=== PATIENT | female | born 1940 | race Caucasian/White ===

== ENCOUNTER 2016-10-28 04:10 | Inpatient (IN) | payer MEDICARE ==
[~2016-10-28] VITALS: Ht 165.1 cm; Wt 107.0 kg
[2016-10-28 08:42] LABS: HEMOGLOBIN 13.4 gm/dl (12.3-15.3); RED BLOOD COUNT 4.61 M/UL (4.00-5.10)
[2016-10-28 09:03] LABS: WHITE BLOOD COUNT 19.9 K/UL (4.5-11.0)
[2016-10-28] MEDS ORDERED: BENICAR40 MG PO (12:44)
[2016-10-28] MEDS ORDERED: ASPIRIN81 MG PO (12:44)
[2016-10-28] MEDS ORDERED: NEURONTIN 400400 MG PO (12:45)
[2016-10-28] MEDS ORDERED: PRADAXA150 MG PO (12:46)
[2016-10-28] MEDS ORDERED: SOTALOL80 MG PO (12:47)
[2016-10-28] MEDS ORDERED: GLUCOPHAGE1000 MG PO (12:47)
[2016-10-28] MEDS ORDERED: ZANTAC150 MG PO (12:48)
[2016-10-28] MEDS ORDERED: CARDIZEM CD180 MG PO (12:55)
[2016-10-28 15:25] LABS: RED BLOOD COUNT 3.84 M/UL (4.00-5.10)
[2016-10-29 03:11] LABS: HEMOGLOBIN 9.4 gm/dl (12.3-15.3); RED BLOOD COUNT 3.27 M/UL (4.00-5.10); WHITE BLOOD COUNT 21.5 K/UL (4.5-11.0)
== END 2016-10-29 09:50 | disposition expired | DRG 270 ==
LOC: ER1 04:10 → ZEROF 04:42 → CCU 04:42
PROVIDERS: Emergency Medicine; Internal Medicine; Internal Medicine Pulmonary Disease; ADMIT Internal Medicine Interventional Cardiology
PROC: 5A02210 Assistance with Cardiac Output using Balloon Pump, Continuous (ICD-10-PCS; principal; 2016-10-28)
PROC: 02703DZ Dilation of Coronary Artery, One Artery with Intraluminal Device, Percutaneous Approach (ICD-10-PCS; 2016-10-28)
PROC: 5A1223Z Performance of Cardiac Pacing, Continuous (ICD-10-PCS; 2016-10-28)
PROC: 4A023N7 Measurement of Cardiac Sampling and Pressure, Left Heart, Percutaneous Approach (ICD-10-PCS; 2016-10-28)
PROC: B2151ZZ Fluoroscopy of Left Heart using Low Osmolar Contrast (ICD-10-PCS; 2016-10-28)
PROC: B2111ZZ Fluoroscopy of Multiple Coronary Arteries using Low Osmolar Contrast (ICD-10-PCS; 2016-10-28)
PROC: 5A1935Z Respiratory Ventilation, Less than 24 Consecutive Hours (ICD-10-PCS; 2016-10-28)
PROC: 0BH17EZ Insertion of Endotracheal Airway into Trachea, Via Natural or Artificial Opening (ICD-10-PCS; 2016-10-28)
PROC: 05HM33Z Insertion of Infusion Device into Right Internal Jugular Vein, Percutaneous Approach (ICD-10-PCS; 2016-10-28)
PROC: 4A12XFZ Monitoring of Cardiac Rhythm, External Approach (ICD-10-PCS; 2016-10-28)
DX: I21.19 ST elevation (STEMI) myocardial infarction involving other coronary artery of inferior wall (principal); J96.01 Acute respiratory failure with hypoxia; R40.20 Unspecified coma; E87.2 Acidosis; N17.9 Acute kidney failure, unspecified; R40.2434 Glasgow coma scale score 3-8, 24 hours or more after hospital admission; R57.0 Cardiogenic shock; E87.5 Hyperkalemia; I25.10 Atherosclerotic heart disease of native coronary artery without angina pectoris; I48.0 Paroxysmal atrial fibrillation; R00.1 Bradycardia, unspecified; C50.912 Malignant neoplasm of unspecified site of left female breast; E11.9 Type 2 diabetes mellitus without complications; I10 Essential (primary) hypertension; H91.90 Unspecified hearing loss, unspecified ear; E66.9 Obesity, unspecified; Z51.5 Encounter for palliative care; Z66 Do not resuscitate; Z86.73 Personal history of transient ischemic attack (TIA), and cerebral infarction without residual deficits; Z68.39 Body mass index [BMI] 39.0-39.9, adult; Z79.01 Long term (current) use of anticoagulants; Z79.84 Long term (current) use of oral hypoglycemic drugs; Z79.82 Long term (current) use of aspirin; Z79.899 Other long term (current) drug therapy; Z88.5 Allergy status to narcotic agent; Z90.12 Acquired absence of left breast and nipple; Z90.710 Acquired absence of both cervix and uterus; Z90.49 Acquired absence of other specified parts of digestive tract; Z98.890 Other specified postprocedural states
CPT/HCPCS: ECHO; 31500; 33210; 33967; 36415; 36600; 70450; 71010; 80048; 80053; 80061; 82330; 82550; 82553; 82803; 82962; 83036; 83605; 83735; 84100; 84484; 85025; 85027; 85610; 85730; 92928; 93306; 94002; 94003; 99291; C1725; C1751; C1769; C1876; C1887; J0171; J0461; J0583; J1250; J1644; J1940; J2060; J2250; J2370; J2405; J7030; J7040; J7050; J7070; Q9965